=== PATIENT | female | born 1995 | race Caucasian/White ===

== ENCOUNTER 2016-09-01 05:34 | Day surgery (SDC) | payer OTHER ==
[~2016-09-01] VITALS: Ht 167.6 cm; Wt 89.7 kg
[2016-09-01 06:44] VITALS: BP 133/91; PULSE 92; TEMP 98.3
[2016-09-01] MEDS ORDERED: [UNRECOGNIZED DRUG - OTHER] (06:50)
[2016-09-01] MEDS ORDERED: NORCO 325 MG-51 TAB PO (09:03)
[2016-09-01] MEDS ORDERED: ZOFRAN ODT4 MG PO (09:03)
[2016-09-01 09:35] VITALS: BP 135/76; PULSE 110; TEMP 97.9
[2016-09-01 09:50] VITALS: BP 131/66; PULSE 101
[2016-09-01 10:05] VITALS: BP 121/63; PULSE 86
[2016-09-01 10:20] VITALS: BP 126/63; PULSE 88
[2016-09-01 10:50] VITALS: BP 114/64; PULSE 86
== END 2016-09-01 13:04 | disposition home or self-care (01) ==
LOC: SDCO 05:34
DX: K80.10 Calculus of gallbladder with chronic cholecystitis without obstruction (principal)
CPT/HCPCS: J0694; J1100; J1170; J1885; J2250; J2405; J2704; J3010; J7120; Q9967